=== PATIENT | female | born 1995 | race Caucasian/White ===

== ENCOUNTER 2020-03-24 12:16 | Inpatient (IN) ==
[2020-03-24] MEDS ORDERED: MEPERIDINE 50 MG/1 ML VIAL IV ONE (16:52)
[2020-03-24] MEDS ORDERED: ONDANSETRON 4 MG/2 ML VIAL IV ONE (16:52)
[2020-03-24 19:03] LABS: Basophils # 0.1 10*3/uL (0.0-0.2); Basophils % 0.4 % (0.0-0.8); Eosinophils # 0.2 10*3/uL (0.0-0.87); Eosinophils % 1.2 % (0.00-10.9); Hemoglobin 10.4 GM/DL (12.0-16.0); Immature Granulocytes % 1.6 %; Lymphocytes # 1.9 10*3/uL (1.4-4.0); Lymphocytes % 15.4 % (21.3-54.2); Mean Corpuscular HGB Conc 31.5 GM/DL (32-36); Mean Corpuscular Volume 88.5 FL (87-102); Mean Platelet Volume 9.9 FL (9.6-12.0); Monocytes % 8.6 % (1.7-12.7); Neutrophils % 72.8 % (38.7-73.9); Platelet Count 338 T/CUMM (130-400); Red Blood Count 3.73 MC/CUMM (3.8-5.5); Red Cell Distribution Width 13.2 % (9.3-17.3); White Blood Count 12.2 T/CUMM (4-12)
[2020-03-25] MEDS ORDERED: LACTATED RINGERS 1,000 ML IV PRN (00:09)
[2020-03-25] MEDS ORDERED: MEPERIDINE 50 MG/1 ML VIAL IV PRN (00:09)
[2020-03-25] MEDS ORDERED: ONDANSETRON 4 MG/2 ML VIAL IV PRN ×2 (00:09→09:35)
[2020-03-25] MEDS ORDERED: NALOXONE 0.4 MG/ML VIAL IV PRN (00:13)
[2020-03-25] MEDS ORDERED: ePHEDrine 50 MG/ML VIAL IV PRN (00:13)
[2020-03-25] MEDS ORDERED: FAMOTIDINE 20 MG/2 ML VIAL IV ONE ×2 (00:13→07:30)
[2020-03-25] MEDS ORDERED: CITRIC ACID/SODIUM CITRATE 30 ML UDCUP PO ONE (00:13)
[2020-03-25] MEDS ORDERED: OXYTOCIN/LR 20 UNIT/1,000 ML BAG IV SCH (00:30)
[2020-03-25] MEDS ORDERED: fentaNYL 2 MCG/ROPIV 0.2% EPID 100 ML EPIDURAL SCH (00:30)
[2020-03-25 03:11] LABS: Alanine Aminotransferase 22 U/L (13-56); Albumin 2.7 G/DL (3.4-5.0); Alkaline Phosphatase 127 U/L (45-117); Aspartate Amino Transferase 21 U/L (0-37); Bilirubin,Total < 0.39 MG/DL (0.2-1.0); Blood Urea Nitrogen 8 MG/DL (7-18); Calcium 8.2 MG/DL (8.5-10.1); Estimated Glom Filtration Rate 129 ML/MIN; Glucose 77 MG/DL (74-106); Osmolality,Calculated 273.5 MOS/KG (273-304)
[2020-03-25] MEDS: LACTATED RINGERS 1,000 ML IV SCH ×2 (05:30→07:55)
[2020-03-25] MEDS ORDERED: CITRIC ACID/SODIUM CITRATE 30 ML UDCUP ONE (07:01)
[2020-03-25] MEDS ORDERED: miSOPROStoL 200 MCG TABLET ONE (07:07)
[2020-03-25] MEDS ORDERED: METHYLERGONOVINE 0.2 MG/1 ML AMP ONE (07:07)
[2020-03-25] MEDS ORDERED: TRANEXAMIC ACID 1,000 MG/10 ML VIAL ONE (07:07)
[2020-03-25] MEDS ORDERED: CARBOPROST TROMETHAMINE 250 MCG/ML AMP IM ONE (07:07)
[2020-03-25] MEDS ORDERED: SODIUM CHLORIDE 0.9% 100 ML IV ONE (07:08)
[2020-03-25] MEDS ORDERED: LIDOCAINE 1% 50 ML VIAL ONE (07:08)
[2020-03-25 08:52] LABS: Cord Arterial Blood HCO3 21.9 MMOL/L
[2020-03-25 08:55] LABS: Cord Venous Blood HCO3 22.6 MMOL/L; Cord Venous Blood PCO2 43.6 MMHG; Cord Venous Blood PO2 23.8
[2020-03-25] MEDS ORDERED: RHO(D) IMMUNE GLOBULIN 300 MCG SYRINGE IM ONE (09:35)
[2020-03-25] MEDS ORDERED: ACETAMINOPHEN 325 MG TABLET PO PRN (09:35)
[2020-03-25] MEDS ORDERED: DIPH/TET/ACEL PERT BOOSTER VACCINE 0.5 ML VIAL IM ONE (09:35)
[2020-03-25] MEDS ORDERED: MEASLES/MUMPS/RUBELLA VACCINE 0.5 ML VIAL SUBCUT ONE (09:35)
[2020-03-25] MEDS ORDERED: OXYTOCIN/LR 20 UNIT/1,000 ML BAG IV ONE (09:35)
[2020-03-25] MEDS ORDERED: WITCH HAZEL PADS 100/JAR TOP PRN (09:35)
[2020-03-25] MEDS ORDERED: IBUPROFEN 800 MG TABLET PO PRN (09:35)
[2020-03-25] MEDS ORDERED: oxyCODONE/ACETAMINOPHEN 5-325 MG TABLET PO PRN (09:35)
[2020-03-25] MEDS ORDERED: HYDROCORTISONE 2.5% RECTAL CREAM 30 GM TUBE TOP PRN (09:35)
[2020-03-25] MEDS ORDERED: BISACODYL 10 MG SUPP RECTAL PRN (09:35)
[2020-03-25] MEDS ORDERED: LANOLIN 50% CREAM 0.3 OZ TUBE TOP PRN (09:35)
[2020-03-25] MEDS: IBUPROFEN 800 MG TABLET PO PRN (10:06)
[2020-03-25] MEDS: oxyCODONE/ACETAMINOPHEN 5-325 MG TABLET PO PRN ×2 (14:13→19:38)
[2020-03-25] MEDS: BENZOCAINE 20%/MENTHOL 0.5% SPRAY 56 GM CAN TOP PRN (15:50)
[2020-03-25] MEDS: DOCUSATE SODIUM 100 MG CAPSULE PO SCH (21:30)
[2020-03-26] MEDS: oxyCODONE/ACETAMINOPHEN 5-325 MG TABLET PO PRN ×4 (02:17→21:29)
[2020-03-26 05:19] LABS: Basophils # 0.1 10*3/uL (0.0-0.2); Basophils % 0.6 % (0.0-0.8); Eosinophils # 0.3 10*3/uL (0.0-0.87); Eosinophils % 1.4 % (0.00-10.9); Hematocrit 32.3 VOL% (35.7-47.0); Hemoglobin 10.1 GM/DL (12.0-16.0); Immature Granulocytes % 2.1 %; Immature Granulocytes Absolute 0.41 #; Lymphocytes # 3.5 10*3/uL (1.4-4.0); Lymphocytes % 18.1 % (21.3-54.2); Mean Corpuscular HGB Conc 31.3 GM/DL (32-36); Mean Platelet Volume 9.9 FL (9.6-12.0); Monocytes % 9.1 % (1.7-12.7); Neutrophils % 68.7 % (38.7-73.9); Platelet Count 299 T/CUMM (130-400); Red Blood Count 3.63 MC/CUMM (3.8-5.5); Red Cell Distribution Width 13.4 % (9.3-17.3); White Blood Count 19.2 T/CUMM (4-12)
[2020-03-26] MEDS: IBUPROFEN 800 MG TABLET PO PRN ×3 (08:05→21:32)
[2020-03-26] MEDS: DOCUSATE SODIUM 100 MG CAPSULE PO SCH ×2 (08:05→21:30)
[2020-03-27] MEDS: BENZOCAINE 20%/MENTHOL 0.5% SPRAY 56 GM CAN TOP PRN (05:22)
[2020-03-27] MEDS: oxyCODONE/ACETAMINOPHEN 5-325 MG TABLET PO PRN (08:10)
[2020-03-27] MEDS: DOCUSATE SODIUM 100 MG CAPSULE PO SCH (08:10)
[2020-03-27] MEDS: IBUPROFEN 800 MG TABLET PO PRN (08:10)
[2020-03-27 09:48] VITALS: BP 117/68
== END 2020-03-27 10:30 | disposition home or self-care (01) | DRG 806 ==
LOC: N.LDOUT 12:16 → N.LD 12:19 → N.OB 03-25 15:37
PROVIDERS: ADMIT Specialist; ATTEND Specialist